=== PATIENT | female | born 1945 | race Caucasian/White ===

== ENCOUNTER 2021-04-26 17:22 | Inpatient (IN) ==
[2021-04-26] MEDS ORDERED: ALUM/MAG/SIMETH/LIDO VISC 1:1 30 ML BOTTLE PO STA (18:00)
[2021-04-26] MEDS ORDERED: ONDANSETRON 4 MG/2 ML VIAL IV ONE ×2 (18:00→19:15)
[2021-04-26 18:14] LABS: Basophils % 0.2 % (0.0-0.8); Eosinophils # 0.1 10*3/uL (0.0-0.87); Eosinophils % 0.4 % (0.00-10.9); Hematocrit 40.9 VOL% (35.7-47.0); Hemoglobin 13.7 GM/DL (12.0-16.0); Immature Granulocytes % 0.4 %; Immature Granulocytes Absolute 0.06 #; Lymphocytes # 2.6 10*3/uL (1.4-4.0); Lymphocytes % 17.2 % (21.3-54.2); Mean Corpuscular HGB Conc 33.5 GM/DL (32-36); Mean Corpuscular Volume 96.5 FL (87-102); Mean Platelet Volume 9.5 FL (9.6-12.0); Monocytes % 5.7 % (1.7-12.7); Neutrophils % 76.1 % (38.7-73.9); Platelet Count 213 T/CUMM (130-400); Red Blood Count 4.24 MC/CUMM (3.8-5.5); Red Cell Distribution Width 12.4 % (9.3-17.3); White Blood Count 15.2 T/CUMM (4-12)
[2021-04-26 18:53] LABS: Albumin 3.8 G/DL (3.4-5.0); Bilirubin,Total 2.4 MG/DL (0.20-1.00); Calcium 9.4 MG/DL (8.5-10.1); Osmolality,Calculated 281.7 MOS/KG (273-304); Potassium 3.8 MMOL/L (3.5-5.1)
[2021-04-26] MEDS ORDERED: MORPHINE 2 MG/1 ML SYRINGE IV STA (19:15)
[2021-04-26] MEDS ORDERED: hydrALAZINE 20 MG/1 ML VIAL IV PRN (19:47)
[2021-04-26] MEDS ORDERED: GLUCAGON 1 MG VIAL IM PRN (19:47)
[2021-04-26] MEDS ORDERED: DEXTROSE 50% 25 GM/50 ML SYRINGE IV PRN (20:13)
[2021-04-26 20:32] LABS: Hepatitis B Core IgM Quant 0.14 Index; Hepatitis B Surface Ag Quant < 0.10 Index; Hepatitis B Surface Ag Result Non-Reactive (NonReactive); Hepatitis C Virus Ab Quant 0.04 Index; Hepatitis C Virus Ab Result Non-Reactive (NonReactive)
[2021-04-26 21:55] LABS: PT Patient Result 11.4 SECS (10.5-12.0); Partial Thromboplastin Time 20.5 SECS (23.8-32.1)
[2021-04-26] MEDS: INSULIN REGULAR 100 UNIT/ML SUBCUT SCH (22:00)
[2021-04-26] MEDS: HYDROmorphone 2 MG/1 ML VIAL IV PRN (23:10)
[2021-04-26] MEDS: PANTOPRAZOLE 40 MG VIAL IV SCH (23:15)
[2021-04-27] MEDS: ONDANSETRON 4 MG/2 ML VIAL IV PRN ×3 (00:05→12:00)
[2021-04-27] MEDS: cefTRIAXone 1,000 MG in SODIUM CHLORIDE 0.9% 100 ML IV SCH ×2 (04:37→22:11)
[2021-04-27] MEDS: SODIUM CHLORIDE 0.9% 1,000 ML IV SCH ×4 (04:37→20:03)
[2021-04-27 05:13] LABS: Basophils % 0.3 % (0.0-0.8); Eosinophils % 0.1 % (0.00-10.9); Hematocrit 40.4 VOL% (35.7-47.0); Hemoglobin 13.1 GM/DL (12.0-16.0); Immature Granulocytes % 0.2 %; Immature Granulocytes Absolute 0.02 #; Lymphocytes # 1.6 10*3/uL (1.4-4.0); Lymphocytes % 17.9 % (21.3-54.2); Mean Corpuscular HGB Conc 32.4 GM/DL (32-36); Mean Corpuscular Volume 99.8 FL (87-102); Mean Platelet Volume 9.6 FL (9.6-12.0); Monocytes % 8.2 % (1.7-12.7); Neutrophils % 73.3 % (38.7-73.9); Platelet Count 187 T/CUMM (130-400); Red Blood Count 4.05 MC/CUMM (3.8-5.5); Red Cell Distribution Width 12.5 % (9.3-17.3); White Blood Count 8.7 T/CUMM (4-12)
[2021-04-27 05:45] LABS: Albumin 3.4 G/DL (3.4-5.0); Bilirubin,Direct 0.96 MG/DL (0.0-0.20); Osmolality,Calculated 286.4 MOS/KG (273-304); Potassium 4.1 MMOL/L (3.5-5.1); Risk Ratio 3.16; Thyroid Stimulating Hormone 3.04 uIU/ml (0.358-3.74); Total Protein 6.8 G/DL (6.4-8.2); VLDL Cholesterol 21.6 MG/DL
[2021-04-27] MEDS: PANTOPRAZOLE 40 MG VIAL IV SCH (08:15)
[2021-04-27] MEDS: ALUMINUM/MAGNES/SIMETH MAX STR 30 ML UDCUP PO PRN ×2 (08:23→16:34)
[2021-04-27] MEDS: HYDROmorphone 2 MG/1 ML VIAL IV PRN ×3 (08:25→16:33)
[2021-04-27] MEDS ORDERED: PANTOPRAZOLE 40 MG TABLET PO SCH (09:00)
[2021-04-27] MEDS: INSULIN REGULAR 100 UNIT/ML SUBCUT SCH ×4 (09:09→20:40)
[2021-04-27 10:07] LABS: Bilirubin,Urine Negative (Negative); Blood, Urine Negative (Negative); Glucose,Urine (UA) Negative (Negative); Ketones,Urine Negative (Negative); Mucus,Urine Occasional /LPF (Occasional); Nitrite,Urine Negative (Negative); Protein,Urine Negative; RBC,Urine 2 /HPF (0-4); Squamous Epithelial Cell,Urine Occasional /HPF (0-10); Urine Appearance CLEAR (Clear); Urine Color Amber (Yellow); Urine Specific Gravity 1.029 (1.001-1.035)
[2021-04-27] MEDS: PROMETHAZINE 25 MG/1 ML VIAL IM PRN (17:35)
[2021-04-28] MEDS: SODIUM CHLORIDE 0.9% 1,000 ML IV SCH ×6 (00:52→23:36)
[2021-04-28] MEDS: ONDANSETRON 4 MG/2 ML VIAL IV PRN ×3 (02:11→12:58)
[2021-04-28] MEDS: HYDROmorphone 2 MG/1 ML VIAL IV PRN ×6 (02:11→23:35)
[2021-04-28 05:21] LABS: Basophils % 0.2 % (0.0-0.8); Eosinophils # 0.1 10*3/uL (0.0-0.87); Eosinophils % 1.5 % (0.00-10.9); Hematocrit 35.5 VOL% (35.7-47.0); Immature Granulocytes % 0.2 %; Immature Granulocytes Absolute 0.01 #; Lymphocytes # 1.9 10*3/uL (1.4-4.0); Lymphocytes % 32.1 % (21.3-54.2); Mean Corpuscular Volume 104.4 FL (87-102); Mean Platelet Volume 9.8 FL (9.6-12.0); Monocytes % 7.4 % (1.7-12.7); Neutrophils % 58.6 % (38.7-73.9); Platelet Count 156 T/CUMM (130-400); Red Cell Distribution Width 12.8 % (9.3-17.3)
[2021-04-28 05:41] LABS: Albumin 2.9 G/DL (3.4-5.0); Bilirubin,Total 1.1 MG/DL (0.20-1.00); Calcium 8.2 MG/DL (8.5-10.1); Osmolality,Calculated 291.7 MOS/KG (273-304); Potassium 3.8 MMOL/L (3.5-5.1)
[2021-04-28] MEDS: INSULIN REGULAR 100 UNIT/ML SUBCUT SCH ×4 (08:13→20:31)
[2021-04-28] MEDS: PANTOPRAZOLE 40 MG VIAL IV SCH (09:36)
[2021-04-28] MEDS: PROMETHAZINE 25 MG/1 ML VIAL IM PRN (15:44)
[2021-04-28] MEDS: cefTRIAXone 1,000 MG in SODIUM CHLORIDE 0.9% 100 ML IV SCH (23:36)
[2021-04-29] MEDS: INSULIN REGULAR 100 UNIT/ML SUBCUT SCH ×4 (07:30→22:05)
[2021-04-29] MEDS: PANTOPRAZOLE 40 MG VIAL IV SCH (08:01)
[2021-04-29 13:29] LABS: Basophils % 0.3 % (0.0-0.8); Eosinophils # 0.1 10*3/uL (0.0-0.87); Eosinophils % 0.6 % (0.00-10.9); Hematocrit 36.8 VOL% (35.7-47.0); Hemoglobin 11.3 GM/DL (12.0-16.0); Immature Granulocytes % 0.1 %; Immature Granulocytes Absolute 0.01 #; Lymphocytes # 3.4 10*3/uL (1.4-4.0); Lymphocytes % 36.8 % (21.3-54.2); Mean Corpuscular HGB Conc 30.7 GM/DL (32-36); Mean Corpuscular Volume 105.1 FL (87-102); Mean Platelet Volume 10.1 FL (9.6-12.0); Monocytes % 7.3 % (1.7-12.7); Neutrophils % 54.9 % (38.7-73.9); Platelet Count 163 T/CUMM (130-400); Red Cell Distribution Width 12.8 % (9.3-17.3); White Blood Count 9.3 T/CUMM (4-12)
[2021-04-29] MEDS ORDERED: ENOXAPARIN 40 MG/0.4 ML SYRINGE SUBCUT SCH (13:30)
[2021-04-29 14:07] LABS: Bilirubin,Total 0.5 MG/DL (0.20-1.00); Calcium 8.1 MG/DL (8.5-10.1); Osmolality,Calculated 291.7 MOS/KG (273-304); Potassium 3.8 MMOL/L (3.5-5.1); Total Protein 6.3 G/DL (6.4-8.2)
[2021-04-29] MEDS: SODIUM CHLORIDE 0.9% 1,000 ML IV SCH ×3 (15:01→15:04)
[2021-04-29] MEDS: cefTRIAXone 1,000 MG in SODIUM CHLORIDE 0.9% 100 ML IV SCH (22:53)
[2021-04-30] MEDS: SODIUM CHLORIDE 0.9% 1,000 ML IV SCH (04:30)
[2021-04-30 05:14] LABS: Basophils % 0.3 % (0.0-0.8); Eosinophils # 0.1 10*3/uL (0.0-0.87); Eosinophils % 1.4 % (0.00-10.9); Hematocrit 32.5 VOL% (35.7-47.0); Hemoglobin 10.1 GM/DL (12.0-16.0); Immature Granulocytes % 0.3 %; Immature Granulocytes Absolute 0.02 #; Lymphocytes # 1.6 10*3/uL (1.4-4.0); Lymphocytes % 26.9 % (21.3-54.2); Mean Corpuscular HGB Conc 31.1 GM/DL (32-36); Mean Corpuscular Volume 101.6 FL (87-102); Mean Platelet Volume 9.9 FL (9.6-12.0); Monocytes % 7.6 % (1.7-12.7); Neutrophils % 63.5 % (38.7-73.9); Platelet Count 123 T/CUMM (130-400); Red Cell Distribution Width 12.1 % (9.3-17.3); White Blood Count 5.8 T/CUMM (4-12)
[2021-04-30 05:49] LABS: Albumin 2.6 G/DL (3.4-5.0); Bilirubin,Total 0.7 MG/DL (0.20-1.00); Calcium 8.1 MG/DL (8.5-10.1); Osmolality,Calculated 287.8 MOS/KG (273-304); Potassium 3.7 MMOL/L (3.5-5.1); Total Protein 5.8 G/DL (6.4-8.2)
[2021-04-30] MEDS: ONDANSETRON 4 MG/2 ML VIAL IV PRN (06:14)
[2021-04-30] MEDS: PROMETHAZINE 25 MG/1 ML VIAL IM PRN ×2 (08:12→22:06)
[2021-04-30] MEDS: INSULIN REGULAR 100 UNIT/ML SUBCUT SCH ×4 (08:13→20:03)
[2021-04-30] MEDS: PANTOPRAZOLE 40 MG VIAL IV SCH (08:16)
[2021-04-30] MEDS ORDERED: INDOMETHACIN SUPP 50 MG SUPP RECTAL ONE (08:29)
[2021-04-30] MEDS ORDERED: LACTATED RINGERS 1,000 ML IV SCH (08:30)
[2021-04-30 09:25] LABS: PT Patient Result 11.4 SECS (10.5-12.0)
[2021-04-30] MEDS ORDERED: fentaNYL 100 MCG/2 ML VIAL ONE (10:44)
[2021-04-30] MEDS ORDERED: MIDAZOLAM 2 MG/2 ML VIAL ONE (10:44)
[2021-04-30] MEDS ORDERED: SUCCINYLCHOLINE 200 MG/10 ML VIAL ONE (10:44)
[2021-04-30] MEDS ORDERED: propofoL 200 MG/20 ML VIAL IV ONE (10:44)
[2021-04-30] MEDS ORDERED: ONDANSETRON 4 MG/2 ML VIAL ONE (10:44)
[2021-04-30] MEDS ORDERED: LIDOCAINE 2% 5 ML VIAL ONE (10:44)
[2021-04-30] MEDS ORDERED: SEVOFLURANE 1 UNIT/15 MINUTE INH ONE ×4 (10:44→12:07)
[2021-04-30] MEDS ORDERED: ROCURONIUM 50 MG/5 ML VIAL IV ONE (10:44)
[2021-04-30] MEDS: cefTRIAXone 1,000 MG in SODIUM CHLORIDE 0.9% 100 ML IV SCH (22:06)
[2021-05-01] MEDS: PROMETHAZINE 25 MG/1 ML VIAL IM PRN (04:44)
[2021-05-01 04:51] LABS: Basophils % 0.2 % (0.0-0.8); Eosinophils % 0.5 % (0.00-10.9); Hematocrit 30.5 VOL% (35.7-47.0); Hemoglobin 10.2 GM/DL (12.0-16.0); Immature Granulocytes % 0.2 %; Immature Granulocytes Absolute 0.01 #; Lymphocytes # 1.1 10*3/uL (1.4-4.0); Lymphocytes % 25.3 % (21.3-54.2); Mean Corpuscular HGB Conc 33.4 GM/DL (32-36); Mean Corpuscular Volume 96.8 FL (87-102); Mean Platelet Volume 9.9 FL (9.6-12.0); Monocytes % 7.8 % (1.7-12.7); Platelet Count 139 T/CUMM (130-400); Red Blood Count 3.15 MC/CUMM (3.8-5.5); Red Cell Distribution Width 12.1 % (9.3-17.3); White Blood Count 4.4 T/CUMM (4-12)
[2021-05-01 05:12] LABS: Potassium 3.8 MMOL/L (3.5-5.1)
[2021-05-01] MEDS: SODIUM CHLORIDE 0.9% 1,000 ML IV SCH ×2 (06:36→12:40)
[2021-05-01] MEDS: HYDROmorphone 2 MG/1 ML VIAL IV PRN (06:37)
[2021-05-01] MEDS: PANTOPRAZOLE 40 MG VIAL IV SCH (08:55)
[2021-05-01] MEDS: INSULIN REGULAR 100 UNIT/ML SUBCUT SCH ×2 (08:56→12:41)
[2021-05-01 12:11] VITALS: BP 141/47
== END 2021-05-01 15:01 | disposition home or self-care (01) | DRG 439 ==
LOC: N.ED 17:22 → N.EDINP 21:51 → SUATTDRO 21:51 → N.TELES 04-27 00:11
PROVIDERS: ADMIT Emergency Medicine; ATTEND Internal Medicine
PROC: ERCPWSP (ICD-10-PCS; 2021-04-30 11:35)

== ENCOUNTER 2021-08-17 09:00 | Observation (INO) | END 2021-08-20 23:59 | disposition home or self-care (01) | LOC: N.2E → N.TELES | PROVIDERS: ADMIT Internal Medicine; ATTEND Internal Medicine ==

== ENCOUNTER 2022-03-14 10:44 | Inpatient (IN) ==
[2022-03-14] MEDS ORDERED: MAGNESIUM SULF RIDER 2 GM/50 ML PREMIX IV PRN (11:35)
[2022-03-14] MEDS ORDERED: ACETAMINOPHEN 325 MG TABLET PO PRN (11:35)
[2022-03-14] MEDS ORDERED: GLUCAGON 1 MG VIAL IM PRN (11:35)
[2022-03-14] MEDS ORDERED: POTASSIUM CHLORIDE 20 MEQ TABLET PO PRN (11:35)
[2022-03-14] MEDS ORDERED: MAGNESIUM SULF RIDER 4 GM/100 ML PREMIX IV PRN (11:35)
[2022-03-14] MEDS ORDERED: POTASSIUM CHLORIDE RIDER 10 MEQ/100 ML PREMIX IV PRN (11:35)
[2022-03-14] MEDS ORDERED: DEXTROSE 10% 250 ML BAG IV PRN (11:35)
[2022-03-14] MEDS ORDERED: hydrALAZINE 20 MG/1 ML VIAL IV PRN (11:40)
[2022-03-14 12:20] LABS: Basophils % 0.4 % (0.0-0.8); Eosinophils # 0.1 10*3/uL (0.0-0.87); Eosinophils % 1.2 % (0.00-10.9); Hematocrit 41.7 VOL% (35.7-47.0); Hemoglobin 13.9 GM/DL (12.0-16.0); Immature Granulocytes % 0.1 %; Immature Granulocytes Absolute 0.01 #; Lymphocytes # 2.1 10*3/uL (1.4-4.0); Mean Corpuscular HGB Conc 33.3 GM/DL (32-36); Mean Corpuscular Volume 96.5 FL (87-102); Mean Platelet Volume 9.5 FL (9.6-12.0); Monocytes # 0.4 10*3/uL (0.11-0.8); Neutrophils % 62.3 % (38.7-73.9); Platelet Count 211 T/CUMM (130-400); Red Blood Count 4.32 MC/CUMM (3.8-5.5); Red Cell Distribution Width 12.7 % (9.3-17.3); White Blood Count 6.8 T/CUMM (4-12)
[2022-03-14 12:37] LABS: Albumin 3.9 G/DL (3.4-5.0); Bilirubin,Total 0.6 MG/DL (0.20-1.00); Calcium 9.7 MG/DL (8.5-10.1); Osmolality,Calculated 281.5 MOS/KG (273-304); Potassium 4.4 MMOL/L (3.5-5.1); Total Protein 7.8 G/DL (6.4-8.2)
[2022-03-14 12:44] LABS: Free T4 (Free Thyroxine) 0.94 NG/DL (0.76-1.46)
[2022-03-14] MEDS: SODIUM CHLORIDE 0.9% 1,000 ML IV SCH (14:40)
[2022-03-14] MEDS: PANTOPRAZOLE 40 MG TABLET PO SCH (14:46)
[2022-03-14] MEDS: VANCOMYCIN 125 MG CAPSULE PO SCH ×2 (14:46→20:50)
[2022-03-14] MEDS: INSULIN REGULAR 100 UNIT/ML SUBCUT SCH ×2 (17:37→20:50)
[2022-03-14 17:43] LABS: Bacteria,Urine Occasional /HPF (Few); Bilirubin,Urine Negative (Negative); Blood, Urine Small mg/dL (Negative); Glucose,Urine (UA) Negative (Negative); Hyaline Casts,Urine 4 /LPF (0-3); Ketones,Urine Negative (Negative); Mucus,Urine Occasional /LPF (Occasional); Nitrite,Urine Negative (Negative); Protein,Urine Negative (Negative); RBC,Urine <1 /HPF (0-4); Squamous Epithelial Cell,Urine Occasional /HPF (0-10); Urine Appearance Slightly Hazy (Clear); Urine Color Yellow (Yellow); Urine Urobilinogen < 2.0 eU/dL (<2.0)
[2022-03-14] MEDS: DICYCLOMINE 10 MG CAPSULE PO SCH ×2 (17:55→20:50)
[2022-03-14] MEDS: DOCUSATE SODIUM 100 MG CAPSULE PO SCH (20:51)
[2022-03-14] MEDS: CHOLESTYRAMINE/ASPARTAME 4 GM PACK PO SCH (22:44)
[2022-03-15] MEDS: VANCOMYCIN 125 MG CAPSULE PO SCH ×4 (01:23→20:31)
[2022-03-15] MEDS: SODIUM CHLORIDE 0.9% 1,000 ML IV SCH (06:35)
[2022-03-15] MEDS: PANTOPRAZOLE 40 MG TABLET PO SCH (08:19)
[2022-03-15] MEDS: DICYCLOMINE 10 MG CAPSULE PO SCH ×4 (08:19→20:31)
[2022-03-15] MEDS: amLODIPine 10 MG TABLET PO SCH (08:20)
[2022-03-15] MEDS: DOCUSATE SODIUM 100 MG CAPSULE PO SCH ×2 (09:00→20:31)
[2022-03-15 09:05] LABS: Basophils % 0.4 % (0.0-0.8); Eosinophils # 0.1 10*3/uL (0.0-0.87); Eosinophils % 1.7 % (0.00-10.9); Hematocrit 34.8 VOL% (35.7-47.0); Immature Granulocytes % 0.2 %; Immature Granulocytes Absolute 0.01 #; Lymphocytes # 1.6 10*3/uL (1.4-4.0); Lymphocytes % 35.2 % (21.3-54.2); Mean Corpuscular HGB Conc 33.6 GM/DL (32-36); Mean Corpuscular Volume 96.7 FL (87-102); Mean Platelet Volume 9.4 FL (9.6-12.0); Monocytes # 0.3 10*3/uL (0.11-0.8); Monocytes % 6.5 % (1.7-12.7); Platelet Count 169 T/CUMM (130-400); Red Cell Distribution Width 12.8 % (9.3-17.3)
[2022-03-15 09:13] LABS: Hemoglobin 11.7 GM/DL (12.0-16.0); White Blood Count 4.6 T/CUMM (4-12)
[2022-03-15 09:35] LABS: Albumin 3.1 G/DL (3.4-5.0); Bilirubin,Total 0.4 MG/DL (0.20-1.00); Calcium 8.9 MG/DL (8.5-10.1); Osmolality,Calculated 287.1 MOS/KG (273-304); Potassium 3.8 MMOL/L (3.5-5.1); Total Protein 6.1 G/DL (6.4-8.2)
[2022-03-15] MEDS: INSULIN REGULAR 100 UNIT/ML SUBCUT SCH ×3 (11:00→20:31)
[2022-03-15] MEDS: CHOLESTYRAMINE/ASPARTAME 4 GM PACK PO SCH ×2 (17:45→21:18)
[2022-03-16] MEDS: VANCOMYCIN 125 MG CAPSULE PO SCH ×4 (01:07→21:22)
[2022-03-16] MEDS: SODIUM CHLORIDE 0.9% 1,000 ML IV SCH ×4 (01:40→16:24)
[2022-03-16] MEDS: INSULIN REGULAR 100 UNIT/ML SUBCUT SCH ×5 (07:18→21:23)
[2022-03-16] MEDS: PANTOPRAZOLE 40 MG TABLET PO SCH (08:11)
[2022-03-16] MEDS: DICYCLOMINE 10 MG CAPSULE PO SCH ×4 (08:11→21:22)
[2022-03-16] MEDS: DOCUSATE SODIUM 100 MG CAPSULE PO SCH ×2 (08:11→21:22)
[2022-03-16] MEDS: predniSONE 10 MG TABLET PO SCH (08:11)
[2022-03-16] MEDS: predniSONE 5 MG TABLET PO SCH (08:11)
[2022-03-16] MEDS: amLODIPine 10 MG TABLET PO SCH (08:11)
[2022-03-16] MEDS: CHOLESTYRAMINE/ASPARTAME 4 GM PACK PO SCH ×2 (09:11→21:23)
[2022-03-17] MEDS: VANCOMYCIN 125 MG CAPSULE PO SCH ×4 (01:18→21:54)
[2022-03-17] MEDS: ONDANSETRON 4 MG/2 ML VIAL IV PRN ×2 (01:22→21:58)
[2022-03-17] MEDS: SODIUM CHLORIDE 0.9% 1,000 ML IV SCH ×3 (05:31→21:54)
[2022-03-17] MEDS: DICYCLOMINE 10 MG CAPSULE PO SCH ×4 (06:42→21:54)
[2022-03-17] MEDS: CHOLESTYRAMINE/ASPARTAME 4 GM PACK PO SCH ×2 (09:25→21:54)
[2022-03-17] MEDS: DOCUSATE SODIUM 100 MG CAPSULE PO SCH ×2 (09:25→21:55)
[2022-03-17] MEDS: PANTOPRAZOLE 40 MG TABLET PO SCH (09:26)
[2022-03-17] MEDS: predniSONE 5 MG TABLET PO SCH (09:26)
[2022-03-17] MEDS: predniSONE 10 MG TABLET PO SCH (09:26)
[2022-03-17] MEDS: amLODIPine 10 MG TABLET PO SCH (09:26)
[2022-03-17] MEDS: INSULIN REGULAR 100 UNIT/ML SUBCUT SCH ×4 (10:02→21:55)
[2022-03-18] MEDS: VANCOMYCIN 125 MG CAPSULE PO SCH ×4 (01:11→22:38)
[2022-03-18] MEDS: DICYCLOMINE 10 MG CAPSULE PO SCH ×4 (06:30→22:09)
[2022-03-18] MEDS: ONDANSETRON 4 MG/2 ML VIAL IV PRN ×2 (07:27→22:09)
[2022-03-18] MEDS: INSULIN REGULAR 100 UNIT/ML SUBCUT SCH ×4 (07:46→22:11)
[2022-03-18] MEDS: CHOLESTYRAMINE/ASPARTAME 4 GM PACK PO SCH (09:05)
[2022-03-18] MEDS: predniSONE 10 MG TABLET PO SCH (09:06)
[2022-03-18] MEDS: predniSONE 5 MG TABLET PO SCH (09:06)
[2022-03-18] MEDS: PANTOPRAZOLE 40 MG TABLET PO SCH (09:06)
[2022-03-18] MEDS: DOCUSATE SODIUM 100 MG CAPSULE PO SCH ×2 (09:06→22:09)
[2022-03-18] MEDS: amLODIPine 10 MG TABLET PO SCH (09:06)
[2022-03-18 09:15] LABS: Basophils % 0.3 % (0.0-0.8); Eosinophils % 0.5 % (0.00-10.9); Hemoglobin 12.3 GM/DL (12.0-16.0); Immature Granulocytes % 0.3 %; Immature Granulocytes Absolute 0.02 #; Lymphocytes # 1.8 10*3/uL (1.4-4.0); Lymphocytes % 29.9 % (21.3-54.2); Mean Corpuscular HGB Conc 34.2 GM/DL (32-36); Mean Corpuscular Volume 95.5 FL (87-102); Mean Platelet Volume 9.3 FL (9.6-12.0); Monocytes # 0.4 10*3/uL (0.11-0.8); Monocytes % 6.8 % (1.7-12.7); Neutrophils % 62.2 % (38.7-73.9); Platelet Count 173 T/CUMM (130-400); Red Blood Count 3.77 MC/CUMM (3.8-5.5); Red Cell Distribution Width 12.7 % (9.3-17.3); White Blood Count 6.2 T/CUMM (4-12)
[2022-03-18 09:37] LABS: Albumin 3.5 G/DL (3.4-5.0); Bilirubin,Total 0.5 MG/DL (0.20-1.00); Calcium 8.9 MG/DL (8.5-10.1); Osmolality,Calculated 281.3 MOS/KG (273-304); Potassium 3.6 MMOL/L (3.5-5.1); Total Protein 6.6 G/DL (6.4-8.2)
[2022-03-19] MEDS: VANCOMYCIN 125 MG CAPSULE PO SCH ×3 (05:13→16:10)
[2022-03-19] MEDS: INSULIN REGULAR 100 UNIT/ML SUBCUT SCH ×3 (08:12→16:37)
[2022-03-19] MEDS: SODIUM CHLORIDE 0.9% 1,000 ML IV SCH ×2 (08:18→13:26)
[2022-03-19] MEDS: amLODIPine 10 MG TABLET PO SCH (08:34)
[2022-03-19] MEDS: PANTOPRAZOLE 40 MG TABLET PO SCH (08:34)
[2022-03-19] MEDS: DICYCLOMINE 10 MG CAPSULE PO SCH ×3 (08:34→16:10)
[2022-03-19] MEDS: predniSONE 5 MG TABLET PO SCH (08:34)
[2022-03-19] MEDS: predniSONE 10 MG TABLET PO SCH (08:34)
[2022-03-19] MEDS: DOCUSATE SODIUM 100 MG CAPSULE PO SCH (08:34)
[2022-03-19 12:25] VITALS: BP 156/71
== END 2022-03-19 17:00 | disposition home or self-care (01) | DRG 372 ==
LOC: N.2W → N.3E 03-16 15:05
PROVIDERS: ADMIT Family Medicine; ATTEND Family Medicine